=== PATIENT | female | born 1980 | race Two or more races ===

== ENCOUNTER 2024-10-17 10:08 | Emergency (ER) | payer MEDICAID, SELFPAY ==
[2024-10-17 10:37] VITALS: BP 112/75; PULSE 84; RESP 16; TEMP 36.9; O2SAT 99; BMI 28.0
--- NOTE | 2024-10-17 10:53 | EDNOTE_ITS ---
ED General RME/HPI General Chief complaint: Eye Problems Stated complaint: LEFT EYE PAIN x 4 DAYS, SENT BY PMD Time Seen by Provider: 10/17/24 10:43 Arrival date/time: 10/17/24 10:08 RME / HPI RME / HPI narrative: LChief complaint: LT eye pain x 4 days HPI: Patient is a 44 year old female with no significant past medical history who presented to the ER with 4 days of left eye pain, which has progressively worsened. Patient's pain started 4 days ago and is isolated to the left eye, right eye is normal, she does not have any bloody or mucoid discharge, there is no swelling or protrusion of the eye, however does endorse blurry vision, and pain on horizontal movement, and when looking down. Patient denies any fevers or chills, endorses having recurrent tearing, burning and severe pain 9/10 intensity in the left eye. She has never experienced the symptoms in the past, has no autoimmune diseases, and has no trauma to the left eye. she also has LT sided temporal headaches, denies pain on mastication and no hearing loss. Allergies: NKFDA Social history: Occupational?History:?works at [employer] Marital?Status:? Tobacco?Use:?Denies ETOH?Use:?Denies Drug?Note:?Denies Social?History?Note:?Lives?at home with family Family history: unsure L Related Data Home Medications ?Medication ?Instructions ?Recorded ?Confirmed No Known Home Medications 06/03/22 06/03/22 Allergies Allergy/AdvReac Type Severity Reaction Status Date / Time No Known Allergies Allergy Verified 10/17/24 10:12 Review of Systems Review of Systems Narrative Review of Systems: GENERAL: Denies fevers/chills or diaphoresis. HEENT: LT sided headache, LT eye blurry visual, severe pain on eye movement and around the LT eye. Denies hearing loss. Denies nasal discharge. NEURO: Denies unusual weakness or difficulty speaking. CARDIO: Denies chest pain or palpitations. PULM: Denies SOB, coughing, or wheezing. GI: Denies abdominal pain, N/V/C/D. Reports having BMs URO: Denies burning/itching/pain/urinary changes. 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 MSK/EXT/SKIN: Denies joint/skeletal/muscle pain, issues/changes in upper or lower extremities, itchiness, or superficial pain. PSYCH: Cooperative, pleasant mood & affect. The rest of the review of systems is otherwise negative. ED Exam Narrative Physical exam: Constitutional Alert, oriented x3 and comfortable HEENT Vision blurry in LT eye, no vision loss. LT eye tearing and excruciatingly tender around the orbit. No swelling or discharge from the eye. Sclera intact. Patent nares. Trachea midline. Respiratory Chest normal on inspection and clear to auscultation bilaterally. Cardiovascular S1 and S2 audible, RRR. No murmurs or carotid bruit. No gross JVD. Abdominal Soft and non tender to palpation in all quadrants. BS + Genitourinary No bladder tenderness, no flank pain. Normal to palpation. Musculoskeletal Extremities tone within normal limits. No LE edema. Neurological CN II - XII grossly intact. Extremity motor and sensation grossly intact. Skin Warm, dry and intact. No apparent lesions. Psychiatric Patient has a good affect, is cooperative. Course Course Course Narrative: patient was given tetracaine x1 after which LT eye pain improved remarkably. Visual acuity: 20/25 bilaterally, patients wears corrective lenses at baseline Slit lamp exam: corneal ulceration/lesion noted @ 6pm. <1mm, likely traumatic tear. Quality Measures none Orders Category Date Time Status Visual Acuity NOW Care 10/17/24 11:[address] orbit BI wo con Stat Exams 10/17/24 10:54 Ordered CBC Stat Lab 10/17/24 11:13 Completed CMP [Comprehensive Metabolic Panel] Stat Lab 10/17/24 12:31 Completed Lactic Acid [Lactate (Lactic Acid)] Stat Lab 10/17/24 11:13 Completed Procalcitonin Stat Lab 10/17/24 12:31 Completed Fluorescein Sodium [Hichm-M-Rpwru] Med 10/17/24 15:17 Discontinued 1 mg LEFT EYE X1 ONE Morphine Inj Med 10/17/24 10:58 Discontinued 2 mg IVP X1 ONE TETRACAINE Op Roma 0.5% [Pontocaine Op Roma 0.5%] Med 10/17/24 10:59 Discontinued 2 drop LEFT EYE X1 ONE Tobramycin/Dexameth Op Oint [Tobradex Op Oint] Med 10/17/24 15:49 Discontinued 2 gm LEFT EYE X1 ONE Reevaluation(s) Reevaluation #1: 11:50 am s/p visual acuity testing Tonometry presure wnl Vital Signs Vital signs: Vital Signs Temperature 98.5 F 10/17/24 10:37 Pulse Rate 84 10/17/24 10:37 Respiratory Rate 16 10/17/24 10:37 Blood Pressure 112/75 10/17/24 10:37 Pulse Oximetry (%) 99 10/17/24 10:37 Oxygen Delivery Method Room Air 10/17/24 10:37 [facility] Patient data External records reviewed:: None Clinical information provided by:: patient and family Social determinants that could affect healthcare access:: none Patient has the following chronic illnesses:: none How is presenting disease/condition affected by chronic disease/condition?: u neffected by Evaluation data The following diagnostics were reviewed and interpreted by me:: lab results, radiology exam(s) and EKG tracing(s) Lab and/or radiology exams considered but not ordered:: CT orbital scan Interpretation Summary: Likely Uvieitis Medications Medications considered but not ordered:: Morphine Medication administrations:: Medication Administration History Discontinued Medications Fluorescein Sodium (Fluorescein Sod 1 Mg Strp) 1 mg LEFT EYE X1 ONE Stop: 10/17/24 15:18 Last Admin: 10/17/24 15:22 Dose: 1 mg Documented By: ARMEN Morphine Sulfate (Morphine Sulf Inj 10 Mg/Ml Vial) 2 mg IVP X1 ONE Stop: 10/17/24 10:59 Last Admin: 10/17/24 11:19 Dose: 2 mg Documented By: PAMELA Tetracaine HCl (Tetracaine Pf Op Roma 0.5% 4 Ml Drpette) 2 drop LEFT EYE X1 ONE Stop: 10/17/24 11:00 Last Admin: 10/17/24 11:11 Dose: 2 drop Documented By: PAMELA Tobramycin/Dexamethasone (Tobramycin/Dexameth Op Oint 3.5 Gm Tube) 2 gm LEFT EYE X1 ONE Stop: 10/17/24 15:50 Last Admin: 10/17/24 15:56 Dose: 2 gm Documented By: ARMEN Pain resolved with tetracaine Consultations Consultation(s) initiated? (list below): No Diagnosis Differential Diagnosis ED Complaint MDM: orbital celullitis Most likely diagnosis given after review of the tests above:: Corneal abrasion Admission Indicated Admission indicated?: not indicated Explain why admission is indicated or not indicated:: Will need outpatient Opthalmology evaluation , do not have service in hospital. Admission Request Was there a request for admission?: No Disposition Plan Disposition Plan: Discharge Discharge Attestation Discharge Attestation: The patient and all family members were given an opportunity to ask questions and understood the discharge instructions. Discharge instructions specifically effects, indications for sooner follow up or return to the emergency department, and the expected course of current diagnosis. Patient condition: Stable Medical Decision Making MDM Narrative MDM Narrative: jmk>> a slit-lamp exam was done with myself with Dr. Diego present as follows the right eye is grossly normal left eye has subjective complaints of pain which was much improved with topical anesthetic. Slit-lamp examination reveals a 1 mm opacity at approximately 6:00 just inferior to the central cornea. With no rust ring no foreign body was seen. Anterior chamber appears to be clear with no cell or flare. There was minimal photophobia. Pupil/iris was reactive. Fluorescein uptake was seen in the same location of the opacity. Otherwise no other uptake was seen with fluorescein. The etiology of this opacity and possible small corneal ulcer is uncertain as the patient does not recall splashing any chemical or foreign body into the eye. Note the resident was instructed and we attempted to reach an dog beautician here in town but none of them were able to be reached. We spent over an hour and attempting to connect with Dr. Blankenship. Tobramycin was ointment was placed in the eye with a gauze pad over the top. Patient was comfortable. Best plan we could produce at this late afternoon was to follow-up with their [facility] first thing in the morning and then get referred to dog beautician from their location. Patient and family were explained in Lao and Congolese and appeared understand this. Patient is a 44 year old female in the ER for excruciating sudden onset LT eye pain and tearing. On exam, visual acuity at baseline, and good eye movement. Diagnosis: Slit lamp exam confirmed corneal ulcer/abrasion at 6pm. Treatment: Terracaine x2 Tobramycin ointment with clean gauze to cover LT eye Discharge plan: - Follow up with PCP at [facility] tomorrow at the earliest to get referral for Opthalmology - Patient will need opthalmology evaluation for the corneal tear - Advised to re-apply Tobramycin ointment at night again, which is being sent with her son. Advised to cover with clean gauze and keep eyelid closed. - Spoke to [facility] and appointment confirmed for 11:30 am on 10/18/2024 - Return to ED if symptoms worsen. Differential Diagnosis Differential Diagnosis: orbital celullitis Lab Data 10/17/24 11:13 10/17/24 12:31 Labs: Lab Results 10/17/24 10/17/24 Range/Units 11:13 12:31 WBC 12.4 H (3.6-11.0) Thou/mm3 RBC 4.57 (4.00-5.20) Miln/mm3 Hgb 13.4 (12.0-16.0) g/dL Hct 39.7 (36.0-46.0) % MCV 87 (80-100) fL MCH 29.3 (25.0-35.0) pg MCHC 33.8 (31.0-37.0) g/dl RDW Std Deviation 40.1 (36.4-46.3) fL Plt Count 268 (140-440) Thou/mm3 Neut % (Auto) 76 (37-80) % Lymph % (Auto) 14 (10-50) % [place] % (Auto) 8 (0-12) % Eos % (Auto) 1 (0-10) % Baso % (Auto) 1 (0-2.5) % Neut # (Auto) 9.4 H (1.8-7.7) Thou/mm3 Lymph # (Auto) 1.8 (1.0-4.8) Thou/mm3 [place] # (Auto) 1.0 H (0.0-0.8) Thou/mm3 Eos # (Auto) 0.1 (0.0-0.5) Thou/mm3 Baso # (Auto) 0.1 (0.0-0.2) Thou/mm3 Immature Gran # (Auto) 0.06 H (0.00-0.00) Thou/mm3 Absolute Nucleated RBC 0.00 (0.00-0.00) Thou/mm3 Immature Gran % 1 H (0-0) % Nucleated RBC % 0 (0) /100 WBC Sodium 136 (136-145) mMol/L Potassium 3.6 (3.4-5.1) mMol/L Chloride 103 (98-107) mMol/L Carbon Dioxide 24.5 (20.0-31.0) mMol/L Anion Gap 9 (7-16) BUN 15 (9-23) mg/dL Creatinine 0.9 (0.6-1.3) mg/dL Estim Creat Clear Calc 70.0 (>60) mL/min eGFR > 60 (60 - ) See Note BUN/Creatinine Ratio 17 (12-20) Ratio Glucose 121 H (74-106) mg/dL Calculated Osmolality 273 L (275-295) Lactic Acid 1.5 (0.4-2.0) mMol/L Calcium 9.2 (8.3-10.6) mg/dL Corrected Calcium 9.2 (8.5-10.1) mg/dL Total Bilirubin 1.1 (0.3-1.2) mg/dL AST 17 (0-34) U/L ALT 24 (10-49) U/L Alkaline Phosphatase 67 (46-116) U/L Total Protein 7.5 (5.7-8.2) gm/dL Albumin 4.5 (3.5-5.0) gm/dL Globulin 3.0 (2.3-3.5) gm/dL Albumin/Globulin Ratio 1.5 (1.2-2.2) Procalcitonin 0.04 (0.0-0.49) ng/ml Discharge Plan Plan Patient Disposition: HOME (Self Care) Patient condition on transfer: Stable Prescriptions/Referrals Prescriptions/Med Rec: No Action No Known Home Medications Referrals: No Primary/Family,Physician [Primary Care Provider] - In 1 week Problem List Clinical Impression: Corneal abrasion Patient/Caregiver Discharge Instructions Other Activity Instructions:: Discharge plan: - Follow up with PCP at [facility] tomorrow at the earliest to get referral for Opthalmology - Patient will need opthalmology evaluation for the corneal tear - Advised to re-apply Tobramycin ointment at night again, which is being sent with her son. Advised to cover with clean gauze and keep eyelid closed. - Spoke to [facility] and appointment confirmed for 11:30 am on 10/18/2024 - Stay out of work until further opthalmology recommendations - Return to ED if symptoms worsen. Education Materials: Corneal Injury Print Language: Lao Stand Alone Forms: Romelia Award Info., Work/School Release, Patient Portal Info Letter Attestation MD Attestation I, Josh Young MD, have reviewed the history, exam, and assessment of the patient. I have evaluated the patient independently and agree with the plan of care documented by [Dr. [email or web address]]. All diagnostic studies were reviewed and discussed. I confirm the diagnosis as documented by the Resident. I was present during the Medical Decision Making for this patient. The patient's plan of care was created between myself and the Resident and consistent with our discussion of the patient's case. Please refer to my slit-lamp examination in the MDM section.
[2024-10-17] MEDS: TETRACAINE PF OP SOL 0.5% 4 ML DRPETTE 2 DROP LEFT EYE (11:11)
[2024-10-17] MEDS: MORPHINE SULF INJ 10 MG/ML VIAL 2 MG IVP (11:19)
--- NOTE | 2024-10-17 11:19 | PC.NURSE ---
Patient from [facility] and taken to 4 with c/o left eye pain, watery and redness x 4 days, worse today, Dr. Diego at bedside to assess patient, new orders received
[2024-10-17 11:23] LABS: Lactate (Lactic Acid) 1.5 mMol/L (0.4-2.0)
[2024-10-17 11:25] LABS: Basophils # (Auto) 0.1 Thou/mm3 (0.0-0.2); Basophils % (Auto) 1 % (0-2.5); Eosinophils # (Auto) 0.1 Thou/mm3 (0.0-0.5); Eosinophils % (Auto) 1 % (0-10); Hematocrit 39.7 % (36.0-46.0); Hemoglobin 13.4 g/dL (12.0-16.0); Immature Granulocytes % (Auto) 1 % (0-0); Immature Granulocytes Auto 0.06 Thou/mm3 (0.00-0.00); Lymphocytes # (Auto) 1.8 Thou/mm3 (1.0-4.8); Lymphocytes % (Auto) 14 % (10-50); Mean Corpuscular HGB Conc 33.8 g/dl (31.0-37.0); Mean Corpuscular Hemoglobin 29.3 pg (25.0-35.0); Mean Corpuscular Volume 87 fL (80-100); Monocytes % (Auto) 8 % (0-12); Neutrophils # (Auto) 9.4 Thou/mm3 (1.8-7.7); Neutrophils % (Auto) 76 % (37-80); Nucleated Red Blood Cell % 0 /100 WBC (0); Platelet Count 268 Thou/mm3 (140-440); RDW Standard Deviation 40.1 fL (36.4-46.3); Red Blood Count 4.57 Miln/mm3 (4.00-5.20); White Blood Count 12.4 Thou/mm3 (3.6-11.0)
[2024-10-17 12:34] VITALS: BP 109/59; PULSE 82; RESP 19; TEMP 36.9; O2SAT 96
[2024-10-17 13:21] LABS: Alanine Aminotransferase 24 U/L (10-49); Albumin, Serum 4.5 gm/dL (3.5-5.0); Albumin/Globulin Ratio 1.5 (1.2-2.2); Alkaline Phosphatase 67 U/L (46-116); Anion Gap 9 (7-16); Aspartate Amino Transferase 17 U/L (0-34); BUN/Creatinine Ratio 17 Ratio (12-20); Bilirubin,Total 1.1 mg/dL (0.3-1.2); Blood Urea Nitrogen 15 mg/dL (9-23); Calcium 9.2 mg/dL (8.3-10.6); Calcium (Corrected) 9.2 mg/dL (8.5-10.1); Carbon Dioxide 24.5 mMol/L (20.0-31.0); Chloride 103 mMol/L (98-107); Creatinine (Component) 0.9 mg/dL (0.6-1.3); Glucose 121 mg/dL (74-106); Osmolality,Calculated 273 (275-295); Potassium 3.6 mMol/L (3.4-5.1); Sodium 136 mMol/L (136-145); Total Protein 7.5 gm/dL (5.7-8.2); eGFR > 60 See Note
[2024-10-17 13:28] LABS: Procalcitonin 0.04 ng/ml (0.0-0.49)
[2024-10-17] MEDS: FLUORESCEIN SOD 1 MG STRP LEFT EYE (15:22)
[2024-10-17] MEDS: TOBRAMYCIN/DEXAMETH OP OINT 3.5 GM TUBE 2 GM LEFT EYE (15:56)
[2024-10-17 16:11] VITALS: BP 109/65; PULSE 81; RESP 16; TEMP 36.4; O2SAT 96
== END 2024-10-17 17:55 | disposition home or self-care (01) ==
PROVIDERS: Student in an Organized Health Care Education/Training Program; Emergency Provider Emergency Medicine
DX: S05.02XA Injury of conjunctiva and corneal abrasion without foreign body, left eye, initial encounter (principal); X58.XXXA Exposure to other specified factors, initial encounter
CPT/HCPCS: 36415; 80053; 83605; 84145; 85025; 87081; 96374; 99284; J2270; A9270